=== PATIENT | female | born 1985 | race African-American/Black ===

== ENCOUNTER 2016-10-02 21:40 | Emergency (ER) | payer BC ==
[~2016-10-02] VITALS: Ht 157.5 cm; Wt 45.4 kg
[~2016-10-02 21:40] MED LIST: ERYTHROMYCIN O3.5 GM OP; FLEXERIL10 MG PO; IBUPROFEN600 MG PO; METRONIDAZOLE PO; NO MEDICATIONS; ZOFRAN PO
== END 2016-10-02 23:29 | disposition home or self-care (01) ==
LOC: SED 21:40
DX: S61.211A Laceration without foreign body of left index finger without damage to nail, initial encounter (principal); W27.2XXA Contact with scissors, initial encounter
CPT/HCPCS: 99283